=== PATIENT | female | born 1990 | race Two or more races ===

== ENCOUNTER 2025-04-26 06:21 | Emergency (ER) | payer MEDICAID ==
[~2025-04-26] VITALS: Ht 149.9 cm; Wt 72.7 kg
[2025-04-26 06:25] VITALS: TEMP 97.3
[2025-04-26 06:29] VITALS: BP 124/77; PULSE 71; RESP 16; O2SAT 98
[2025-04-26] MEDS: BACITRACIN 0.9 GM PACKET OINTMENT TP ONE (06:59)
[2025-04-26] MEDS: LIDOCAINE 1%/EPI 1:200,000/PF 10 ML VIAL SQ ONE (07:00)
[2025-04-26] MEDS: PERTUSS(ACELL),DIPH,TET/PF 0.5 ML SYRINGE [ADULT] IM. ONE (07:01)
[2025-04-26] MEDS: BACITRACIN 28 GM OINTMENT TP ONE (07:09)
[2025-04-26] MEDS: AMOX TR/POT CLAV 875 MG/125 MG TABLET PO ONE (07:59)
[2025-04-26] MEDS ORDERED: AMOX-457 PO (08:05)
== END 2025-04-26 08:16 | disposition home or self-care (01) ==
LOC: EMS 06:21
DX: S61.411A Laceration without foreign body of right hand, initial encounter (principal); F12.90 Cannabis use, unspecified, uncomplicated; F17.210 Nicotine dependence, cigarettes, uncomplicated; W13.8XXA Fall from, out of or through other building or structure, initial encounter; Y93.89 Activity, other specified; Y92.89 Other specified places as the place of occurrence of the external cause; Y99.8 Other external cause status
CPT/HCPCS: 99283; 90715; 90471; 12002; J3490

== ENCOUNTER 2025-05-03 07:30 | Emergency (ER) | payer MEDICAID ==
[~2025-05-03] VITALS: Ht 149.9 cm; Wt 72.7 kg
[~2025-05-03 07:30] MED LIST: AMOX-457 PO
[2025-05-03 07:32] VITALS: BP 125/86; PULSE 85; RESP 18; TEMP 98.4; O2SAT 97
== END 2025-05-03 08:28 | disposition home or self-care (01) ==
LOC: EMS 07:31
DX: S61.411D Laceration without foreign body of right hand, subsequent encounter (principal); F12.90 Cannabis use, unspecified, uncomplicated; F17.210 Nicotine dependence, cigarettes, uncomplicated; Z79.899 Other long term (current) drug therapy; Z91.013 Allergy to seafood; X58.XXXD Exposure to other specified factors, subsequent encounter
CPT/HCPCS: 99281; Z7502